=== PATIENT | female | born 1940 | race Caucasian/White ===

== ENCOUNTER 2017-06-07 09:48 | Day surgery (SDC) | payer MEDICARE, BC ==
[~2017-06-07 09:48] MED LIST: Lactated Ringers 1,000 ML IV SCH; Sodium Chloride 0.9% 5 ML Syringe FLUSH PRN
--- NOTE | 2017-06-07 10:01 | PCM.PN ---
- General Info Date of Service: 06/07/17 - Review of Systems Systems Review Comment:: 77-year-old female referred for colonoscopy. She has a history of colon polyps. She denies any recent symptoms. She is medically stable to proceed today with no recent significant change in her health status. Her recent history and physical is reviewed. I have discussed the proposed colonoscopy with the patient. She understands indications and risks. She agrees to proceed. - Patient Data Med Orders - Current: Current Medications Lactated Ringer's (Ringers, Lactated) 1,000 mls @ 50 mls/hr IV ASDIRECTED ELISE Sodium Chloride (Syrex Flush) 5 ml FLUSH Q8HR PRN PRN Reason: Keep Vein Open - Problem List Review Problem List Initiated/Reviewed/Updated: Yes - My Orders Last 24 Hours: My Active Orders 06/06/17 12:08 Resuscitation Status Routine 06/07/17 09:00 Patient to Empty Bladder [RC] ASDIRECTED Peripheral IV Care [RC] . DIRECTED Verify Patient Consent Obtain [RC] ASDIRECTED Lactated Ringers [Ringers, Lactated] 1,000 ml IV ASDIRECTED Sodium Chloride 0.9% [Syrex Flush] 5 ml FLUSH Q8HR PRN Peripheral IV Insertion Adult [OM.PC] Routine 06/07/17 Breakfast Nothing Per Oral Diet [DIET] - Assessment Assessment:: History of colon polyps - Plan Plan:: Colonoscopy
[2017-06-07] MEDS ORDERED: Propofol 200 MG/20 ML SDV ONE (10:16)
[2017-06-07] MEDS ORDERED: Propofol 200 MG/20 ML SDV IV ONE (10:21)
--- NOTE | 2017-06-07 10:51 | PCM.OPNOTE ---
- General Post-Op/Procedure Note Date of Surgery/Procedure: 06/07/17 Operative Procedure(s): Colonoscopy with Polyp removal Findings: Moderate Sigmoid Diverticulosis Small Ascending Colon Polyp Pre Op Diagnosis: History of Colon Polyps Post-Op Diagnosis: Colon Polyp. Diverticulosis Anesthesia Technique: MAC Primary Surgeon: Erik Baxter Pathology: Ascending Colon Polyp Output, Urine Amount: 0 EBL in mLs: 0 Complications: None Condition: Good
[2017-06-07 12:28] VITALS: BP 151/89
--- NOTE | 2017-06-07 19:12 | PROC ---
DATE OF PROCEDURE: PHYSICIAN: Erik Baxter MD PRE-PROCEDURE DIAGNOSIS: History of colon polyps. POST-PROCEDURE DIAGNOSIS: Colon polyp, diverticulosis. PROCEDURE PERFORMED: Colonoscopy with polypectomy. INDICATIONS FOR SURGERY: This 77-year-old female has a history of colon polyps and comes today for surveillance colonoscopy. FINDINGS: A single small polyp was noted in the ascending colon. It was 5 mm in size and sessile in configuration. The patient has a moderate degree of sigmoid diverticulosis which does not appear to be acutely inflamed or otherwise complicated at this time. PROCEDURE: The patient was taken to the operating room. She was given intravenous sedation and with her in the left lateral decubitus position, digital rectal exam was performed showing no rectal masses. The Olympus colonoscope was inserted into the rectum. A retroflexed examination of the rectal canal was performed. The scope was then carefully advanced under direct visualization through the entire length of the colon until the cecum was reached. Cecal acquisition was confirmed by noting the normal internal cecal anatomy including the appendiceal orifice and ileocecal valve. The light was also noted to transilluminate the abdominal wall in the right lower quadrant. After examining the cecum, the scope was slowly withdrawn sequentially re- examining the colonic segments. In the ascending colon, the above-described polyp was identified. It was removed grossly in its entirety with the biopsy forceps. The examination was continued and once it had been completed, the scope was removed and the patient was taken from the operating room in satisfactory condition. ESTIMATED BLOOD LOSS: Zero. COMPLICATIONS: None. PROGNOSIS: Good. /[id number]/MODL
== END 2017-06-07 12:30 | disposition home or self-care (01) ==
LOC: KA.SDS 09:48
PROVIDERS: ATTEND Surgery
DX: Z12.11 Encounter for screening for malignant neoplasm of colon (principal); D12.2 Benign neoplasm of ascending colon; K57.30 Diverticulosis of large intestine without perforation or abscess without bleeding; K21.9 Gastro-esophageal reflux disease without esophagitis; F41.9 Anxiety disorder, unspecified; F32.9 Major depressive disorder, single episode, unspecified; E05.90 Thyrotoxicosis, unspecified without thyrotoxic crisis or storm; Z86.010 Personal history of colon polyps; Z88.0 Allergy status to penicillin; Z88.1 Allergy status to other antibiotic agents; Z79.899 Other long term (current) drug therapy; Z98.51 Tubal ligation status; Z90.710 Acquired absence of both cervix and uterus; Z90.49 Acquired absence of other specified parts of digestive tract
CPT/HCPCS: 00811; 88305; J2704

== ENCOUNTER 2019-10-09 08:32 | Day surgery (SDC) | payer MEDICARE, BC ==
[2019-10-09] MEDS ORDERED: Sodium Chloride 0.9% 10 ML Syringe FLUSH PRN (08:45)
[2019-10-09] MEDS ORDERED: Propofol 200 MG/20 ML SDV ONE (08:55)
[2019-10-09] MEDS: Lactated Ringers 1,000 ML IV SCH (09:13)
--- NOTE | 2019-10-09 10:07 | PCM.PN ---
- General Info Date of Service: 10/09/19 - Review of Systems Systems Review Comment:: 79-year-old female referred for upper endoscopy. She has recent symptoms of nausea in the morning as well as unexplained weight loss. Recent CT scans did not show any reason for her symptoms. She denies dysphasia. She thinks the omeprazole that she has recently been taking has helped slightly. She is medically stable to proceed with the proposed upper endoscopy today. Her recent history and physical is reviewed and no significant changes are noted. I have discussed the proposed procedure with the patient. She agrees to proceed excepting risks. - Patient Data Vitals - Most Recent: Last Vital Signs Temp 98.9 F 10/09/19 08:49 Pulse 84 10/09/19 08:49 Resp 16 10/09/19 08:49 BP 160/92 H 10/09/19 08:49 Pulse Ox 94 L 10/09/19 08:49 Weight - Most Recent: 68.039 kg Lab Results Last 24 Hours: Laboratory Results - last 24 hr 10/08/19 Range/Units 12:10 SARS-CoV-2 RNA (RT-PCR) Cancelled Med Orders - Current: Current Medications Lactated Ringer's (Ringers, Lactated) 1,000 mls @ 50 mls/hr IV ASDIRECTED ELISE Last Admin: 10/09/19 09:13 Dose: 50 mls/hr Documented by: Sodium Chloride (Saline Flush) 10 ml FLUSH Q8HR PRN PRN Reason: keep vein open Discontinued Medications Propofol (Diprivan 20 Ml) Confirm Administered Dose 400 mg .ROUTE .STK-MED ONE Stop: 10/09/19 08:56 Sepsis Event Note - Focused Exam Vital Signs: Vital Signs Temp Pulse Resp BP Pulse Ox 10/09/19 08:49 98.9 F 84 16 160/92 H 94 L Date Exam was Performed: 10/09/19 Time Exam was Performed: 10:06 - Problem List Review Problem List Initiated/Reviewed/Updated: Yes - My Orders Last 24 Hours: My Active Orders 10/08/19 13:11 Resuscitation Status Routine 10/09/19 Breakfast Nothing Per Oral Diet [DIET] 10/09/19 08:45 Peripheral IV Care [RC] . DIRECTED Lactated Ringers [Ringers, Lactated] 1,000 ml IV ASDIRECTED Sodium Chloride 0.9% [Saline Flush] 10 ml FLUSH Q8HR PRN Peripheral IV Insertion Adult [OM.PC] Routine 10/09/19 09:30 Patient to Empty Bladder [RC] ASDIRECTED 10/09/19 10:00 Verify Patient Consent Obtain [RC] ASDIRECTED - Assessment Assessment:: Nausea Weight loss - Plan Plan:: Upper endoscopy
[2019-10-09] MEDS ORDERED: Propofol 200 MG/20 ML SDV IV ONE (10:12)
--- NOTE | 2019-10-09 10:44 | PCM.OPNOTE ---
- General Post-Op/Procedure Note Date of Surgery/Procedure: 10/09/19 Operative Procedure(s): EGD with Biopsy Findings: Small Hiatal Hernia Exam otherwise normal Pre Op Diagnosis: Nausea. Weight Loss Post-Op Diagnosis: Hiatal Hernia Anesthesia Technique: MAC Primary Surgeon: Erik Baxter Pathology: Biopsies of Duodenum and Gastric Antrum EBL in mLs: 3 Complications: None Condition: Good
[2019-10-09 11:47] VITALS: BP 123/71; PULSE 74
--- NOTE | 2019-10-09 21:10 | OR ---
DATE OF SURGERY: 10/09/2019 SURGEON: Erik Baxter MD PREOPERATIVE DIAGNOSIS: Nausea and weight loss. POSTOPERATIVE DIAGNOSIS: Hiatal hernia. OPERATION PERFORMED: Esophagogastroduodenoscopy with biopsy. INDICATIONS FOR SURGERY: This 79-year-old female has had a several month history of unexplained symptoms of nausea and weight loss. She is referred for diagnostic upper endoscopy. FINDINGS: No ulcers or gross mucosal lesions were seen during the exam. The patient had an approximately 2 cm hiatal hernia, but this did not appear to be acutely inflamed or otherwise complicated. The esophagus, gastric mucosa and duodenum otherwise appeared normal. DESCRIPTION OF PROCEDURE: The patient was taken to the operating room. She was given intravenous sedation and with her in the left lateral decubitus position, the Olympus gastroscope was advanced through a mouth guard into the oral cavity. The scope was then advanced under direct visualization through the oropharynx, which was examined including the vocal cords and appeared normal. The scope was then advanced down through the esophagus, stomach, and into the duodenum where examination to the 3rd portion was performed. While examining the duodenum, random biopsies of the mucosa were taken because of the patient's symptoms. The scope was withdrawn into the stomach where random biopsies of the antrum were taken to rule out H pylori. Full examination of the stomach including retroflexed examination of the fundus was carried out. The gastric, cardia and GE junction were then carefully examined and the esophagus was re-examined as the scope was withdrawn. The scope was removed and the patient was taken from the operating room in satisfactory condition. ESTIMATED BLOOD LOSS: 3 mL. COMPLICATIONS: None. PROGNOSIS: Good. /[id number]/MODL
== END 2019-10-09 12:10 | disposition home or self-care (01) ==
LOC: KA.SDS 08:32
PROVIDERS: ATTEND Surgery
DX: K29.50 Unspecified chronic gastritis without bleeding (principal); K44.9 Diaphragmatic hernia without obstruction or gangrene; R30.0 Dysuria; Z88.0 Allergy status to penicillin; Z88.1 Allergy status to other antibiotic agents
CPT/HCPCS: 00731; 88305; J2704; J7120

== ENCOUNTER 2019-10-24 14:32 | Emergency (ER) | payer MEDICARE, BC ==
--- NOTE | 2019-10-24 14:38 | EDM.PDOC ---
ED HPI GENERAL MEDICAL PROBLEM - General Chief Complaint: Trauma Stated Complaint: FALL Time Seen by Provider: 10/24/19 14:32 Source of Information: Reports: Patient, EMS History Limitations: Reports: No Limitations - History of Present Illness INITIAL COMMENTS - FREE TEXT/NARRATIVE: 79 YO WF PRESENTS TO ER AFTER SLIP AND FALL WHILE ENTERING A [employer] [place] JUST PRIOR TO ARRIVAL. PT LOST HER BALANCE AND WAS ASSISTED TO THE GROUND BY HER FRIEND. PT STRUCK HER HEAD ON THE PAVEMENT AND COMPLAINS OF MILD HEADACHE AT THE SITE OF HER HEMATOMA ON RIGHT SIDE OF SCALP. PT DENIES SEVERE HEADACHE OR NECK PAIN. PT DENIES BLOOD THINNERS. PT DENIES LOSS OF CONSCIOUSNESS. PT REPORTS NAUSEA WITHOUT VOMITING BUT STATES THIS IS CHRONIC FOR HER. PT DENIES CHEST PAIN, SHORTNESS OF BREATH OR GENERALIZED WEAKNESS PRIOR AND POST FALL. PT ALERT AND ORIENTED X 4. GCS-15 Onset: Today Duration: Improving Location: Reports: Head Quality: Reports: Ache Severity: Mild Improves with: Reports: None Worsens with: Reports: None Associated Symptoms: Reports: Headaches. Denies: Confusion, Chest Pain, Cough, Fever/Chills, Malaise, Seizure, Shortness of Breath, Syncope, Weakness - Related Data Allergies Allergy/AdvReac Type Severity Reaction Status Date / Time ciprofloxacin Allergy UNKNOWN Verified 10/24/19 14:42 Penicillins Allergy ITCH Verified 10/24/19 14:42 AROUND SHOT SPOT Home Meds: Home Meds PARoxetine HCL [Paroxetine HCl] 10 mg PO DAILY 08/31/13 [History] LORazepam [Ativan] 0.5 mg PO BID PRN 06/06/17 [History] Propranolol [Inderal] 40 mg PO DAILY 06/06/17 [History] Past Medical History HEENT History: Reports: Impaired Vision Genitourinary History: Reports: Renal Calculus [employer] History: Reports: - Infectious Disease History Infectious Disease History: Reports: Chicken Pox, Measles, Mumps - Past Surgical History HEENT Surgical History: Reports: Tonsillectomy GI Surgical History: Reports: Appendectomy, Colonoscopy Female Surgical History: Reports: Hysterectomy, Kidney stone extraction Social & Family History - Caffeine Use Caffeine Use: Reports: Coffee Review of Systems - Review of Systems Review Of Systems: See Below Constitutional: Reports: No Symptoms Eyes: Reports: No Symptoms Ears: Reports: No Symptoms Nose: Reports: No Symptoms Mouth/Throat: Reports: No Symptoms Respiratory: Reports: No Symptoms Cardiovascular: Reports: No Symptoms GI/Abdominal: Reports: No Symptoms Genitourinary: Reports: No Symptoms Musculoskeletal: Reports: No Symptoms Skin: Reports: Other (HEMATOMA TO RIGHT FOREHEAD) Neurological: Reports: No Symptoms ED EXAM, GENERAL - Physical Exam Exam: See Below Exam Limited By: No Limitations General Appearance: Alert, WD/WN, No Apparent Distress Eye Exam: Bilateral Eye: EOMI, PERRL Ears: Normal External Exam, Normal Canal, Hearing Grossly Normal, Normal TMs Ear Exam: Bilateral Ear: Auricle Normal, Canal Normal, TM normal Throat/Mouth: Normal Inspection, Normal Lips, Normal Teeth, Normal Gums, Normal Oropharynx, Normal Voice, No Airway Compromise Head: Atraumatic, Normocephalic Neck: Normal Inspection, Supple, Non-Tender, Full Range of Motion Respiratory/Chest: No Respiratory Distress, Lungs Clear, Normal Breath Sounds, No Accessory Muscle Use, Chest Non-Tender Cardiovascular: Normal Peripheral Pulses, Regular Rate, Rhythm, No Edema, No Gallop, No JVD, No Murmur, No Rub GI/Abdominal: Normal Bowel Sounds, Soft, Non-Tender, No Organomegaly, No Distention, No Abnormal Bruit, No Mass Back Exam: Normal Inspection, Full Range of Motion, NT Extremities: Normal Inspection, Normal Range of Motion, Non-Tender, Normal Capillary Refill, No Pedal Edema Neurological: Alert, Oriented, CN II-XII Intact, Normal Cognition, Normal Gait, Normal Reflexes, No Motor/Sensory Deficits Psychiatric: Normal Affect, Normal Mood Skin Exam: Warm, Dry, Intact, Normal Color, No Rash Lymphatic: No Adenopathy Course - Vital Signs Last Recorded V/S: Last Vital Signs Temp 36.4 C 10/24/19 14:43 Pulse 74 10/24/19 14:43 Resp 20 10/24/19 14:43 BP 159/74 H 10/24/19 14:43 Pulse Ox 94 L 10/24/19 14:43 - Orders/Labs/Meds Orders: Active Orders 24 hr Category Date Time Status Cervical Spine wo Cont [CT] Stat Exams 10/24/19 14:32 Taken - Radiology Interpretation Free Text/Narrative:: CT HEAD- NAD CT CERVICAL- NAD Departure - Departure Time of Disposition: 15:20 Disposition: Home, Self-Care 01 Condition: Good Clinical Impression: Scalp hematoma Qualifiers: Encounter type: initial encounter Qualified Code(s): S00.03XA - Contusion of scalp, initial encounter Minor head injury without loss of consciousness Qualifiers: Encounter type: initial encounter Qualified Code(s): S09.90XA - Unspecified injury of head, initial encounter Fall Qualifiers: Encounter type: initial encounter Qualified Code(s): W19.XXXA - Unspecified fall, initial encounter - Discharge Information Instructions: Facial or Scalp Contusion, Head Injury, Adult Referrals: Kellie Birmingham MD [Primary Care Provider] - Forms: ED Department Discharge Additional Instructions: 1. DISCHARGE HOME 2. HEAD INJURY PRECAUTIONS GIVEN 3. CONTINUE HOME MEDS DIRECTED BY PCP 4. ICE TO FOREHEAD 5. FOLLOW UP WITH PCP NEEDED 6. RETURN TO ER FOR WORSENING SYMPTOMS Sepsis Event Note (ED) - Focused Exam Vital Signs: Vital Signs Temp Pulse Resp BP Pulse Ox 10/24/19 14:43 36.4 C 74 20 159/74 H 94 L - My Orders Last 24 Hours: My Active Orders 10/24/19 14:32 Cervical Spine wo Cont [CT] Stat - Assessment/Plan Last 24 Hours: My Active Orders 10/24/19 14:32 Cervical Spine wo Cont [CT] Stat Assessment:: 1. MINOR HEAD INJURY 2. SCALP HEMATOMA 3. TRIP AND FALL Plan: 1. DISCHARGE HOME 2. HEAD INJURY PRECAUTIONS GIVEN 3. CONTINUE HOME MEDS DIRECTED BY PCP 4. ICE TO FOREHEAD 5. FOLLOW UP WITH PCP NEEDED 6. RETURN TO ER FOR WORSENING SYMPTOMS
--- NOTE | 2019-10-24 15:10 | CT ---
[id number] CT/CT Head WO IV EXAM: CT Head WO IV CLINICAL DATA: FALL WITH HEMATOMA. COMPARISON STUDY: None FINDINGS: No intracranial hemorrhage, extra-axial fluid collection, mass, or acute ischemia. Generalized parenchymal atrophy with scattered areas of nonspecific white matter disease, commonly seen as sequela of chronic microvascular ischemia. Right frontal scalp hematoma without underlying calvarial fracture. Paranasal sinuses and mastoid air cells are clear. IMPRESSION: No acute intracranial findings. Ha Jean DO 10/24/19 0819 Thank you for allowing us to participate in the care of your patient.
[2019-10-24] MEDS: Ondansetron 4 MG Tab.DIS PO ONE (15:14)
--- NOTE | 2019-10-24 15:16 | CT ---
[id number] CT/CT Cervical Spine WO IV Exam: CT Cervical Spine WO IV CLINICAL DATA: FALL WITH HEMATOMA. COMPARISON: None. FINDINGS: No fracture or subluxation is seen. The C1-C2 articulation is unremarkable. The prevertebral soft tissues are within normal limits. Advanced degenerative changes of the cervical spine. These include loss of disc space height, endplate osteophytosis and facet arthropathy. These are most pronounced at C5-C6, C6-C7 and C7-T1. IMPRESSION: NO ACUTE FRACTURE OR SUBLUXATION. Ha Jean DO 10/24/19 [id number] Thank you for allowing us to participate in the care of your patient.
[2019-10-24 16:00] VITALS: PULSE 69
[2019-10-24 16:01] VITALS: BP 154/69
== END 2019-10-24 15:40 | disposition home or self-care (01) ==
LOC: KA.ED 14:32
DX: S00.03XA Contusion of scalp, initial encounter (principal); Z88.1 Allergy status to other antibiotic agents; Z88.0 Allergy status to penicillin; W01.0XXA Fall on same level from slipping, tripping and stumbling without subsequent striking against object, initial encounter; Y92.511 Restaurant or cafe as the place of occurrence of the external cause
CPT/HCPCS: 70450; 72125; 99284; 99284-25; A9270-GY

== ENCOUNTER 2022-06-29 07:09 | Inpatient (IN) | payer MEDICARE, BC ==
[2022-06-29] MEDS ORDERED: LORazepam 0.5 MG Tab PO PRN (12:59)
[2022-06-29] MEDS: Metoprolol Tartrate 25 MG Tab PO SCH (20:33)
[2022-06-29] MEDS: Apixaban 5 MG Tab PO SCH (20:35)
[2022-06-30] MEDS: Omeprazole 20 MG Cap.CR PO SCH (06:34)
[2022-06-30] MEDS ORDERED: Aspirin 81 MG Tab.Chew PO SCH (09:00)
[2022-06-30] MEDS: Metoprolol Tartrate 25 MG Tab PO SCH ×2 (09:37→21:38)
[2022-06-30] MEDS: Apixaban 5 MG Tab PO SCH ×2 (09:37→21:38)
[2022-06-30] MEDS: Multivitamins with Minerals/Iron/Folic Acid/Lycopene Tab PO SCH (09:37)
[2022-06-30] MEDS: PARoxetine 20 MG Tab PO SCH (09:37)
[2022-06-30] MEDS ORDERED: Digoxin 125 MCG Tab PO ONE ×2 (15:30→21:30)
[2022-06-30] MEDS ORDERED: Digoxin 125 MCG Tab PO SCH (21:30)
[2022-07-01] MEDS: Omeprazole 20 MG Cap.CR PO SCH ×2 (06:26→06:30)
[2022-07-01] MEDS ORDERED: Atropine 0.1 MG/ML 10 ML Syringe IVPUSH PRN (07:36)
[2022-07-01] MEDS ORDERED: Lidocaine 2% 100 MG/5 ML Syringe IVPUSH PRN (07:36)
[2022-07-01] MEDS ORDERED: EPINEPHrine 1:10,000 1 MG/10 ML Syringe IVPUSH PRN (07:36)
[2022-07-01] MEDS ORDERED: Nitroglycerin 0.4 MG Tab.SL SL PRN (07:36)
[2022-07-01] MEDS: Multivitamins with Minerals/Iron/Folic Acid/Lycopene Tab PO SCH (08:03)
[2022-07-01] MEDS: Metoprolol Tartrate 25 MG Tab PO SCH ×2 (08:03→21:05)
[2022-07-01] MEDS: Nitrofurantoin Monohydrate/Macrocrystalline 100 MG Cap PO SCH ×2 (08:03→21:05)
[2022-07-01] MEDS: Apixaban 5 MG Tab PO SCH ×2 (08:03→21:05)
[2022-07-01] MEDS: PARoxetine 20 MG Tab PO SCH (08:04)
[2022-07-01] MEDS ORDERED: Sodium Chloride 0.9% 10 ML Syringe FLUSH PRN (10:43)
[2022-07-01] MEDS ORDERED: Sodium Chloride 0.9% 1,000 ML IV ONE (10:43)
[2022-07-01] MEDS: Diltiazem IR 60 MG Tab PO SCH ×2 (11:28→22:54)
[2022-07-02] MEDS: Omeprazole 20 MG Cap.CR PO SCH (07:28)
[2022-07-02] MEDS: PARoxetine 20 MG Tab PO SCH (08:09)
[2022-07-02] MEDS: Apixaban 5 MG Tab PO SCH ×2 (08:10→20:45)
[2022-07-02] MEDS: Nitrofurantoin Monohydrate/Macrocrystalline 100 MG Cap PO SCH ×2 (08:10→20:44)
[2022-07-02] MEDS: Multivitamins with Minerals/Iron/Folic Acid/Lycopene Tab PO SCH (08:10)
[2022-07-02] MEDS: Metoprolol Tartrate 25 MG Tab PO SCH ×3 (08:10→20:45)
[2022-07-02] MEDS ORDERED: Metoprolol Tartrate 25 MG Tab PO SCH (09:00)
[2022-07-02] MEDS: Diltiazem IR 60 MG Tab PO SCH ×2 (10:41→22:44)
[2022-07-03] MEDS: Omeprazole 20 MG Cap.CR PO SCH ×2 (06:10→07:14)
[2022-07-03] MEDS: Apixaban 5 MG Tab PO SCH ×2 (08:02→20:39)
[2022-07-03] MEDS: Nitrofurantoin Monohydrate/Macrocrystalline 100 MG Cap PO SCH ×2 (08:02→20:39)
[2022-07-03] MEDS: PARoxetine 20 MG Tab PO SCH (08:02)
[2022-07-03] MEDS: Metoprolol Tartrate 25 MG Tab PO SCH ×3 (08:02→20:40)
[2022-07-03] MEDS: Multivitamins with Minerals/Iron/Folic Acid/Lycopene Tab PO SCH (08:02)
[2022-07-03] MEDS: Diltiazem IR 60 MG Tab PO SCH ×2 (10:31→17:55)
[2022-07-04] MEDS: Diltiazem IR 60 MG Tab PO SCH ×3 (07:15→17:57)
[2022-07-04] MEDS: Omeprazole 20 MG Cap.CR PO SCH (07:15)
[2022-07-04] MEDS: Nitrofurantoin Monohydrate/Macrocrystalline 100 MG Cap PO SCH ×2 (08:01→20:48)
[2022-07-04] MEDS: Apixaban 5 MG Tab PO SCH ×2 (08:01→20:48)
[2022-07-04] MEDS: PARoxetine 20 MG Tab PO SCH (08:02)
[2022-07-04] MEDS: Multivitamins with Minerals/Iron/Folic Acid/Lycopene Tab PO SCH (08:03)
[2022-07-04] MEDS: Metoprolol Tartrate 25 MG Tab PO SCH ×3 (08:36→20:48)
[2022-07-05] MEDS: Omeprazole 20 MG Cap.CR PO SCH ×2 (05:59→06:29)
[2022-07-05] MEDS: Diltiazem IR 60 MG Tab PO SCH ×3 (06:00→18:33)
[2022-07-05] MEDS: Nitrofurantoin Monohydrate/Macrocrystalline 100 MG Cap PO SCH ×2 (08:32→20:34)
[2022-07-05] MEDS: Multivitamins with Minerals/Iron/Folic Acid/Lycopene Tab PO SCH (08:32)
[2022-07-05] MEDS: Metoprolol Tartrate 25 MG Tab PO SCH (08:33)
[2022-07-05] MEDS: PARoxetine 20 MG Tab PO SCH (08:33)
[2022-07-05] MEDS: Apixaban 5 MG Tab PO SCH ×2 (08:48→20:34)
[2022-07-06] MEDS: Diltiazem IR 60 MG Tab PO SCH ×2 (02:31→05:30)
[2022-07-06] MEDS: Omeprazole 20 MG Cap.CR PO SCH (07:37)
[2022-07-06] MEDS: Apixaban 5 MG Tab PO SCH ×2 (08:14→21:07)
[2022-07-06] MEDS: Multivitamins with Minerals/Iron/Folic Acid/Lycopene Tab PO SCH (08:14)
[2022-07-06] MEDS: Nitrofurantoin Monohydrate/Macrocrystalline 100 MG Cap PO SCH ×2 (08:14→21:07)
[2022-07-06] MEDS: PARoxetine 20 MG Tab PO SCH (08:14)
[2022-07-06] MEDS: Diltiazem 120 MG Cap.CD PO SCH (11:41)
[2022-07-07] MEDS: Omeprazole 20 MG Cap.CR PO SCH (07:34)
[2022-07-07] MEDS: PARoxetine 20 MG Tab PO SCH (08:57)
[2022-07-07] MEDS: Apixaban 5 MG Tab PO SCH ×2 (08:57→21:25)
[2022-07-07] MEDS: Multivitamins with Minerals/Iron/Folic Acid/Lycopene Tab PO SCH (08:57)
[2022-07-07] MEDS: Nitrofurantoin Monohydrate/Macrocrystalline 100 MG Cap PO SCH ×2 (08:57→21:25)
[2022-07-07] MEDS: Diltiazem 120 MG Cap.CD PO SCH (11:38)
[2022-07-07] MEDS ORDERED: Metoprolol Tartrate 50 MG Tab PO ONE (22:40)
[2022-07-08] MEDS: Omeprazole 20 MG Cap.CR PO SCH (07:24)
[2022-07-08] MEDS: MULTIVITAMIN PO SCH (09:12)
[2022-07-08] MEDS: PARoxetine 20 MG Tab PO SCH (09:13)
[2022-07-08] MEDS: Apixaban 5 MG Tab PO SCH ×2 (09:13→21:16)
[2022-07-08] MEDS ORDERED: Diltiazem 120 MG Cap.CD PO SCH ×2 (12:00)
[2022-07-08] MEDS ORDERED: Diltiazem 180 MG Cap.CD PO SCH ×2 (12:00)
[2022-07-08] MEDS: Diltiazem 120 MG Cap.CD PO SCH (12:59)
[2022-07-09] MEDS: Omeprazole 20 MG Cap.CR PO SCH ×2 (06:15→08:11)
[2022-07-09] MEDS: Apixaban 5 MG Tab PO SCH ×2 (08:01→20:12)
[2022-07-09] MEDS: MULTIVITAMIN PO SCH (08:01)
[2022-07-09] MEDS: PARoxetine 20 MG Tab PO SCH (08:01)
[2022-07-09] MEDS: Diltiazem 120 MG Cap.CD PO SCH (13:10)
[2022-07-10] MEDS: Omeprazole 20 MG Cap.CR PO SCH ×2 (06:20→06:32)
[2022-07-10] MEDS: PARoxetine 20 MG Tab PO SCH (08:05)
[2022-07-10] MEDS: Apixaban 5 MG Tab PO SCH ×2 (08:05→20:19)
[2022-07-10] MEDS: MULTIVITAMIN PO SCH (08:06)
[2022-07-10] MEDS: Diltiazem 120 MG Cap.CD PO SCH (12:04)
[2022-07-11] MEDS: Apixaban 5 MG Tab PO SCH ×2 (08:25→20:37)
[2022-07-11] MEDS: Omeprazole 20 MG Cap.CR PO SCH (08:25)
[2022-07-11] MEDS: PARoxetine 20 MG Tab PO SCH (08:25)
[2022-07-11] MEDS: MULTIVITAMIN PO SCH (08:25)
[2022-07-11] MEDS: Diltiazem 120 MG Cap.CD PO SCH (12:10)
[2022-07-12] MEDS: Apixaban 5 MG Tab PO SCH ×2 (09:00→20:42)
[2022-07-12] MEDS: PARoxetine 20 MG Tab PO SCH (09:00)
[2022-07-12] MEDS: MULTIVITAMIN PO SCH (09:01)
[2022-07-12] MEDS: Omeprazole 20 MG Cap.CR PO SCH (09:04)
[2022-07-12] MEDS: Diltiazem 120 MG Cap.CD PO SCH (11:41)
[2022-07-13] MEDS: Omeprazole 20 MG Cap.CR PO SCH (06:33)
[2022-07-13] MEDS: PARoxetine 20 MG Tab PO SCH (08:56)
[2022-07-13] MEDS: MULTIVITAMIN PO SCH (08:56)
[2022-07-13] MEDS: Apixaban 5 MG Tab PO SCH (08:56)
[2022-07-13 09:44] VITALS: BP 108/57; PULSE 95
== END 2022-07-13 10:04 | DRG 947 ==
LOC: KA.MS 13:25 → UNDOADMIN 13:34
PROVIDERS: ADMIT Internal Medicine; ATTEND Internal Medicine
DX: R53.1 Weakness (principal); I21.4 Non-ST elevation (NSTEMI) myocardial infarction; M62.82 Rhabdomyolysis; I48.0 Paroxysmal atrial fibrillation; F41.9 Anxiety disorder, unspecified; I27.20 Pulmonary hypertension, unspecified; I35.0 Nonrheumatic aortic (valve) stenosis; K21.9 Gastro-esophageal reflux disease without esophagitis; Z90.49 Acquired absence of other specified parts of digestive tract; Z79.82 Long term (current) use of aspirin
CPT/HCPCS: 36415; 71045; 80053; 81001; 82550; 83605; 85025; 87086; 87088; 87186; 93005; 97110-GP; 97161-GP; 97530-GO; 97535-GO; A9270-GY; J3490; J7030

== ENCOUNTER 2023-09-28 16:10 | Inpatient (IN) | payer MEDICARE, BC ==
[2023-09-28] MEDS ORDERED: Docusate Sodium 100 MG Cap PO PRN (17:19)
[2023-09-28] MEDS ORDERED: Polyethylene Glycol 3350 Powder 17 GM Packet PO PRN (17:19)
[2023-09-28] MEDS ORDERED: Morphine 2 MG/ML SYRINGE IVPUSH PRN (17:19)
[2023-09-28] MEDS ORDERED: Sodium Chloride 0.9% 10 ML Syringe FLUSH PRN (17:19)
[2023-09-28] MEDS ORDERED: Ondansetron 4 MG/2 ML SDV IV PRN (17:19)
[2023-09-28 17:39] LABS: BASOPHILS ABSOLUTE AUTO 0.03 10^3/uL (0.00-0.10); BASOPHILS PERCENT AUTO 0.4 % (0.0-1.0); EOSINOPHILS ABSOLUTE AUTO 0.05 10^3/uL (0.10-0.30); EOSINOPHILS PERCENT AUTO 0.6 % (1.0-3.0); HEMATOCRIT 38.3 % (37.0-47.0); HEMOGLOBIN 12.4 g/dL (12.0-16.0); IMMATURE GRAN ABSOLUTE AUTO 0.01 10^3/uL (0.00-0.50); IMMATURE GRAN PERCENT AUTO 0.1 % (0.0-5.0); LYMPHOCYTES ABSOLUTE AUTO 1.46 10^3/uL (1.00-4.00); LYMPHOCYTES PERCENT AUTO 18.5 % (20.0-40.0); MEAN CORPUSCULAR HGB CONC 32.4 g/dL (32.0-36.0); MEAN CORPUSCULAR VOLUME 92.5 fL (82.0-92.0); MEAN PLATELET VOLUME 9.8 fL (7.4-10.4); MONOCYTES ABSOLUTE AUTO 0.69 10^3/uL (0.10-0.80); MONOCYTES PERCENT AUTO 8.7 % (2.0-8.0); NEUTROPHILS ABSOLUTE AUTO 5.67 10^3/uL (2.50-7.00); NEUTROPHILS PERCENT AUTO 71.7 % (50.0-70.0); PLATELET COUNT,PLT 163 10^3/uL (150-400); RED BLOOD CELL COUNT 4.14 10^6/uL (3.80-5.50); RED CELL DISTRIBUTION WIDTH 14.1 % (11.5-14.5); WHITE BLOOD CELL COUNT,WBC 7.91 10^3/uL (5.00-10.00)
[2023-09-28 18:03] LABS: ALBUMIN 2.93 g/dL (3.40-5.00); ANION GAP 12.3 mmol/L (5-15); BILIRUBIN TOTAL 0.7 mg/dL (0.2-1.0); C-REACTIVE PROTEIN 1.58 mg/dL (0.00-0.50); CALCIUM 8.7 mg/dL (8.7-10.3); CARBON DIOXIDE,CO2 28.1 mmol/L (21.0-32.0); CREATININE 0.6 mg/dL (0.51-1.17); EST CRCL DRUG DOSING (CG) 63.93 mL/min; MAGNESIUM 1.6 mg/dL (1.8-2.4); POTASSIUM,K 4.4 mmol/L (3.5-5.1); PROTEIN TOTAL,TP 6.7 g/dL (6.4-8.2); TSH ULTRASENSITIVE 0.008 uIU/mL (0.340-4.820)
[2023-09-28] MEDS: Diltiazem IR 30 MG Tab PO SCH ×2 (18:22→23:01)
[2023-09-28] MEDS: Magnesium Sulfate/Water 2 GM in Premix Bag 1 BAG IV ONE (19:49)
[2023-09-28] MEDS: Lactated Ringers 1,000 ML IV SCH (20:27)
[2023-09-28] MEDS: Melatonin 3 MG Tab PO PRN (21:33)
[2023-09-28] MEDS: Apixaban 5 MG Tab PO SCH (21:33)
[2023-09-28] MEDS: Nitrofurantoin Monohydrate/Macrocrystalline 100 MG Cap PO SCH (21:34)
[2023-09-29] MEDS: Albuterol 0.083% 2.5 MG/3 ML Neb Soln NEB PRN (02:05)
[2023-09-29] MEDS: Furosemide 40 MG/4 ML VIAL IVPUSH ONE (05:14)
[2023-09-29] MEDS: cefTRIAXone 1 GM Vial IVPUSH SCH (05:14)
[2023-09-29] MEDS: Azithromycin 500 MG in Sodium Chloride 0.9% 250 ML IV SCH (05:15)
[2023-09-29] MEDS: Pantoprazole 20 MG Tab, Delayed Release PO SCH (05:58)
[2023-09-29] MEDS: Levothyroxine 75 MCG Tab PO SCH (05:58)
[2023-09-29] MEDS: PARoxetine 20 MG Tab PO SCH (08:51)
[2023-09-29] MEDS: Docusate Sodium 100 MG Cap PO SCH (08:53)
[2023-09-29 11:11] LABS: BASOPHILS ABSOLUTE AUTO 0.01 10^3/uL (0.00-0.10); BASOPHILS PERCENT AUTO 0.1 % (0.0-1.0); HEMATOCRIT 42.9 % (37.0-47.0); HEMOGLOBIN 13.9 g/dL (12.0-16.0); IMMATURE GRAN ABSOLUTE AUTO 0.02 10^3/uL (0.00-0.50); IMMATURE GRAN PERCENT AUTO 0.2 % (0.0-5.0); LYMPHOCYTES ABSOLUTE AUTO 0.69 10^3/uL (1.00-4.00); LYMPHOCYTES PERCENT AUTO 5.8 % (20.0-40.0); MEAN CORPUSCULAR HGB CONC 32.4 g/dL (32.0-36.0); MEAN CORPUSCULAR VOLUME 92.7 fL (82.0-92.0); MEAN PLATELET VOLUME 10.4 fL (7.4-10.4); MONOCYTES ABSOLUTE AUTO 0.46 10^3/uL (0.10-0.80); MONOCYTES PERCENT AUTO 3.9 % (2.0-8.0); NEUTROPHILS ABSOLUTE AUTO 10.62 10^3/uL (2.50-7.00); PLATELET COUNT,PLT 187 10^3/uL (150-400); RED BLOOD CELL COUNT 4.63 10^6/uL (3.80-5.50); RED CELL DISTRIBUTION WIDTH 14.2 % (11.5-14.5)
[2023-09-29 11:18] LABS: ALBUMIN 3.16 g/dL (3.40-5.00); ANION GAP 16.7 mmol/L (5-15); BILIRUBIN TOTAL 0.8 mg/dL (0.2-1.0); C-REACTIVE PROTEIN 1.97 mg/dL (0.00-0.50); CALCIUM 8.5 mg/dL (8.7-10.3); CARBON DIOXIDE,CO2 25.1 mmol/L (21.0-32.0); CREATININE 0.56 mg/dL (0.51-1.17); EST CRCL DRUG DOSING (CG) 68.49 mL/min; MAGNESIUM 1.7 mg/dL (1.8-2.4); POTASSIUM,K 3.8 mmol/L (3.5-5.1); PROTEIN TOTAL,TP 7.2 g/dL (6.4-8.2)
[2023-09-29] MEDS: Acetaminophen 325 MG Tab PO PRN (11:20)
[2023-09-29] MEDS: metroNIDAZOLE/Normal Saline 500 MG in Premix Bag 1 BAG IV SCH (13:02)
[2023-09-29] MEDS: Sodium Chloride 0.9% 250 ML IV SCH (13:03)
[2023-09-29] MEDS: Furosemide 40 MG/4 ML VIAL IVPUSH SCH (14:14)
[2023-09-29] MEDS: Diltiazem 25 MG/5 ML SDV IVPUSH ONE (18:27)
[2023-09-30 09:28] LABS: BASOPHILS ABSOLUTE AUTO 0.02 10^3/uL (0.00-0.10); BASOPHILS PERCENT AUTO 0.2 % (0.0-1.0); HEMATOCRIT 39.1 % (37.0-47.0); HEMOGLOBIN 12.7 g/dL (12.0-16.0); LYMPHOCYTES ABSOLUTE AUTO 0.82 10^3/uL (1.00-4.00); LYMPHOCYTES PERCENT AUTO 8.2 % (20.0-40.0); MEAN CORPUSCULAR HEMOGLOBIN 30.5 pg (27.0-31.0); MEAN CORPUSCULAR HGB CONC 32.5 g/dL (32.0-36.0); MEAN PLATELET VOLUME 9.8 fL (7.4-10.4); MONOCYTES ABSOLUTE AUTO 0.55 10^3/uL (0.10-0.80); MONOCYTES PERCENT AUTO 5.5 % (2.0-8.0); NEUTROPHILS ABSOLUTE AUTO 8.57 10^3/uL (2.50-7.00); NEUTROPHILS PERCENT AUTO 86.1 % (50.0-70.0); PLATELET COUNT,PLT 172 10^3/uL (150-400); RED BLOOD CELL COUNT 4.16 10^6/uL (3.80-5.50); RED CELL DISTRIBUTION WIDTH 14.2 % (11.5-14.5); WHITE BLOOD CELL COUNT,WBC 9.96 10^3/uL (5.00-10.00)
[2023-09-30 09:43] LABS: ANION GAP 8.7 mmol/L (5-15); C-REACTIVE PROTEIN 2.72 mg/dL (0.00-0.50); CALCIUM 8.5 mg/dL (8.7-10.3); CARBON DIOXIDE,CO2 33.6 mmol/L (21.0-32.0); CREATININE 0.58 mg/dL (0.51-1.17); EST CRCL DRUG DOSING (CG) 66.13 mL/min; MAGNESIUM 1.6 mg/dL (1.8-2.4); POTASSIUM,K 3.3 mmol/L (3.5-5.1)
[2023-09-30] MEDS: Diltiazem 120 MG Cap.CD PO SCH ×2 (13:04→17:51)
[2023-09-30] MEDS: Potassium Chloride 10 MEQ Tab.ER PO ONE (13:13)
[2023-09-30] MEDS: Potassium Chloride 20 MEQ in Premix Bag 1 BAG IV ONE (13:14)
[2023-09-30] MEDS: Magnesium Sulfate/Water 4 GM in Premix Bag 1 BAG IV ONE (14:56)
[2023-09-30 16:26] LABS: ANION GAP 12.2 mmol/L (5-15); CALCIUM 8.7 mg/dL (8.7-10.3); CARBON DIOXIDE,CO2 30.6 mmol/L (21.0-32.0); CREATININE 0.65 mg/dL (0.51-1.17); EST CRCL DRUG DOSING (CG) 59.01 mL/min; MAGNESIUM 1.8 mg/dL (1.8-2.4); POTASSIUM,K 3.8 mmol/L (3.5-5.1)
[2023-09-30] MEDS ORDERED: Midodrine 5 MG Tab PO SCH (17:00)
[2023-09-30] MEDS: Midodrine 5 MG Tab PO SCH (17:16)
[2023-10-01] MEDS: Diltiazem 120 MG Cap.CD PO SCH (08:27)
[2023-10-01 08:29] LABS: BASOPHILS ABSOLUTE AUTO 0.05 10^3/uL (0.00-0.10); BASOPHILS PERCENT AUTO 0.6 % (0.0-1.0); EOSINOPHILS ABSOLUTE AUTO 0.04 10^3/uL (0.10-0.30); EOSINOPHILS PERCENT AUTO 0.4 % (1.0-3.0); HEMATOCRIT 39.4 % (37.0-47.0); HEMOGLOBIN 12.8 g/dL (12.0-16.0); IMMATURE GRAN ABSOLUTE AUTO 0.02 10^3/uL (0.00-0.50); IMMATURE GRAN PERCENT AUTO 0.2 % (0.0-5.0); LYMPHOCYTES ABSOLUTE AUTO 1.27 10^3/uL (1.00-4.00); LYMPHOCYTES PERCENT AUTO 14.1 % (20.0-40.0); MEAN CORPUSCULAR HEMOGLOBIN 30.3 pg (27.0-31.0); MEAN CORPUSCULAR HGB CONC 32.5 g/dL (32.0-36.0); MEAN CORPUSCULAR VOLUME 93.4 fL (82.0-92.0); MEAN PLATELET VOLUME 9.7 fL (7.4-10.4); MONOCYTES ABSOLUTE AUTO 0.75 10^3/uL (0.10-0.80); MONOCYTES PERCENT AUTO 8.3 % (2.0-8.0); NEUTROPHILS ABSOLUTE AUTO 6.89 10^3/uL (2.50-7.00); NEUTROPHILS PERCENT AUTO 76.4 % (50.0-70.0); PLATELET COUNT,PLT 177 10^3/uL (150-400); RED BLOOD CELL COUNT 4.22 10^6/uL (3.80-5.50); RED CELL DISTRIBUTION WIDTH 14.1 % (11.5-14.5); WHITE BLOOD CELL COUNT,WBC 9.02 10^3/uL (5.00-10.00)
[2023-10-01 08:50] LABS: ALBUMIN 2.88 g/dL (3.40-5.00); ANION GAP 8.9 mmol/L (5-15); BILIRUBIN TOTAL 1.1 mg/dL (0.2-1.0); CALCIUM 8.6 mg/dL (8.7-10.3); CARBON DIOXIDE,CO2 33.3 mmol/L (21.0-32.0); CREATININE 0.65 mg/dL (0.51-1.17); EST CRCL DRUG DOSING (CG) 59.01 mL/min; MAGNESIUM 2.1 mg/dL (1.8-2.4); POTASSIUM,K 4.2 mmol/L (3.5-5.1); PROTEIN TOTAL,TP 6.9 g/dL (6.4-8.2)
[2023-10-01] MEDS: metroNIDAZOLE 500 MG Tab PO SCH (10:54)
[2023-10-01] MEDS: Doxycycline Monohydrate 100 MG Cap PO SCH (20:56)
[2023-10-02] MEDS: Diltiazem 120 MG Cap.CD PO SCH (08:21)
[2023-10-02] MEDS ORDERED: Diltiazem 120 MG Cap.CD PO SCH (09:00)
[2023-10-02] MEDS: Midodrine 5 MG Tab PO SCH (17:43)
[2023-10-03] MEDS ORDERED: Diltiazem IR 60 MG Tab PO SCH (11:00)
[2023-10-03] MEDS: Metoprolol Tartrate 25 MG Tab PO SCH (12:09)
[2023-10-03] MEDS: Diltiazem IR 60 MG Tab PO SCH (18:05)
[2023-10-04] MEDS: Diltiazem 180 MG Cap.CD PO SCH (13:23)
[2023-10-05] MEDS ORDERED: Sodium Chloride 0.9% 1,000 ML IV SCH (11:30)
[2023-10-05] MEDS ORDERED: Sodium Chloride 0.9% 250 ML IV SCH (12:15)
[2023-10-05] MEDS ORDERED: Metoprolol Succinate 25 MG Tab.ER PO SCH (21:00)
[2023-10-05] MEDS: Digoxin 125 MCG Tab PO SCH (22:01)
[2023-10-05] MEDS: LORazepam 0.5 MG Tab PO PRN (22:02)
[2023-10-06 07:32] LABS: BASOPHILS ABSOLUTE AUTO 0.04 10^3/uL (0.00-0.10); BASOPHILS PERCENT AUTO 0.5 % (0.0-1.0); EOSINOPHILS ABSOLUTE AUTO 0.05 10^3/uL (0.10-0.30); EOSINOPHILS PERCENT AUTO 0.6 % (1.0-3.0); HEMATOCRIT 39.8 % (37.0-47.0); HEMOGLOBIN 12.9 g/dL (12.0-16.0); IMMATURE GRAN ABSOLUTE AUTO 0.01 10^3/uL (0.00-0.50); IMMATURE GRAN PERCENT AUTO 0.1 % (0.0-5.0); LYMPHOCYTES ABSOLUTE AUTO 1.42 10^3/uL (1.00-4.00); LYMPHOCYTES PERCENT AUTO 17.9 % (20.0-40.0); MEAN CORPUSCULAR HEMOGLOBIN 30.1 pg (27.0-31.0); MEAN CORPUSCULAR HGB CONC 32.4 g/dL (32.0-36.0); MEAN CORPUSCULAR VOLUME 92.8 fL (82.0-92.0); MONOCYTES ABSOLUTE AUTO 0.67 10^3/uL (0.10-0.80); MONOCYTES PERCENT AUTO 8.4 % (2.0-8.0); NEUTROPHILS ABSOLUTE AUTO 5.76 10^3/uL (2.50-7.00); NEUTROPHILS PERCENT AUTO 72.5 % (50.0-70.0); PLATELET COUNT,PLT 211 10^3/uL (150-400); RED BLOOD CELL COUNT 4.29 10^6/uL (3.80-5.50); RED CELL DISTRIBUTION WIDTH 14.4 % (11.5-14.5); WHITE BLOOD CELL COUNT,WBC 7.95 10^3/uL (5.00-10.00)
[2023-10-06 07:46] LABS: ALBUMIN 2.89 g/dL (3.40-5.00); ANION GAP 11.6 mmol/L (5-15); BILIRUBIN TOTAL 0.8 mg/dL (0.2-1.0); CALCIUM 8.8 mg/dL (8.7-10.3); CREATININE 0.65 mg/dL (0.51-1.17); EST CRCL DRUG DOSING (CG) 59.01 mL/min; POTASSIUM,K 3.6 mmol/L (3.5-5.1); PROTEIN TOTAL,TP 6.8 g/dL (6.4-8.2)
[2023-10-06] MEDS: Diltiazem 240 MG Cap.ER PO SCH (09:22)
[2023-10-06 13:28] VITALS: BP 102/63; PULSE 100
== END 2023-10-06 13:10 | DRG 308 ==
LOC: KA.MS 16:10
PROVIDERS: ADMIT Family Medicine; ATTEND Family Medicine
DX: I48.91 Unspecified atrial fibrillation (principal); J18.9 Pneumonia, unspecified organism; J69.0 Pneumonitis due to inhalation of food and vomit; N39.0 Urinary tract infection, site not specified; Z66 Do not resuscitate; I25.10 Atherosclerotic heart disease of native coronary artery without angina pectoris; K21.9 Gastro-esophageal reflux disease without esophagitis; I25.2 Old myocardial infarction; E86.0 Dehydration; F03.90 Unspecified dementia, unspecified severity, without behavioral disturbance, psychotic disturbance, mood disturbance, and anxiety; E83.42 Hypomagnesemia; M17.12 Unilateral primary osteoarthritis, left knee; R25.1 Tremor, unspecified; R79.89 Other specified abnormal findings of blood chemistry; Z88.0 Allergy status to penicillin; Z88.1 Allergy status to other antibiotic agents; Z97.3 Presence of spectacles and contact lenses; Z79.01 Long term (current) use of anticoagulants; Z98.51 Tubal ligation status; Z90.49 Acquired absence of other specified parts of digestive tract; Z74.09 Other reduced mobility; Z90.710 Acquired absence of both cervix and uterus; Z79.899 Other long term (current) drug therapy
CPT/HCPCS: 36415; 70450; 71045; 80048; 80053; 81001; 83605; 83735; 83880; 84145; 84439; 84443; 84481; 84484; 85025; 86140; 87086; 92610-GN; A9270-GY; J0456; J0696; J1836; J1940; J3475; J3480; J3490; J7050; J7120; J7613-GY; Q3014